=== PATIENT | female | born 1935 | race Caucasian/White ===

== ENCOUNTER 2019-11-21 07:23 | Outpatient (CLI) | payer MEDICARE, SELFPAY ==
[2019-11-21 08:40] LABS: Basophils Absolute Auto 0.1 K/mm3 (0.0-0.1); Basophils Percent Auto 0.6 % (0.2-1.2); Eosinophils Absolute Auto 0.1 K/mm3 (0-0.3); Eosinophils Percent Auto 1.4 % (0-4.4); Hemoglobin 13.1 g/dL (12.0-15.0); Immature Granulocyte Absolute 0.02 K/mm3 (0.00-0.031); Immature Granulocyte Percent A 0.2 % (0-0.5); Lymphocytes Absolute Auto 2.23 K/mm3 (0.9-3.2); Lymphocytes Percent Auto 25.8 % (18.3-44.2); Mean Corpuscular Volume 93.8 fl (80-100); Mean Platelet Volume 11.3 fl (7.4-10.4); Monocytes Absolute Auto 0.5 K/mm3 (0.1-0.6); Monocytes Percent Auto 6.1 % (2.6-8.5); Neutrophils Absolute Auto 5.7 K/mm3 (1.3-6.7); Neutrophils Percent Auto 65.9 % (45.5-73.1); Platelet Count Result 281 k/mm3 (150-375); Red Blood Count 4.37 M/mm3 (4.2-5.4); Red Cell Distribution Width 13.2 % (11.5-14.5); White Blood Count 8.7 K/mm3 (4.5-10.0)
[2019-11-21 09:36] LABS: Free T4 Free Thyroxine 1.05 ng/mL (0.78-2.19); Vitamin D 25 Hydroxy 75.8 ng/mL
[2019-11-21 09:41] LABS: Creatinine Urine 164.3 mg/dL
[2019-11-21 09:46] LABS: MALB Creatinine Ratio 42.9 mg/g (0-30); Microalbumin Urine Random 70.5 mg/L (0-16.7)
[2019-11-21 10:03] LABS: Alanine Aminotransferase 21 U/L (4-35); Alkaline Phosphatase 121 U/L (38-126); Aspartate Amino Transferase 27 U/L (14-36); Bilirubin,Total 1.3 mg/dL (0.2-1.3); Blood Urea Nitrogen 18 mg/dL (7-17); Calcium 9.6 mg/dL (8.4-10.2); Carbon Dioxide 29 mmol/L (22-30); Cholesterol 131 mg/dL (0-200); Estimated Glomerular Filt Rate 53; Glucose 110 mg/dL (65-105); HDL Direct 32 mg/dL; Triglycerides 108 mg/dL (<150)
[2019-11-21 10:10] LABS: Hemoglobin A1C 5.7 % (<5.7)
[2019-11-21 10:12] LABS: LDL Cholesterol Direct 75 mg/dL
[2019-11-21 10:34] LABS: Total Triiodothyronine (T3) 1.26 NG/ML (0.97-1.69)
[2019-11-21 12:23] LABS: Albumin Level 4.4 g/dL (3.5-5.1); Anion Gap 7 mmol/L (8-16); Chloride 107 mmol/L (98-107); Potassium 4.2 mmol/L (3.4-5.0); Sodium 143 mmol/L (137-145)
== END 2019-11-21 07:24 | disposition home or self-care (01) ==
PROVIDERS: PCP Family Medicine; Visit Provider Nurse Practitioner
DX: E55.9 Vitamin D deficiency, unspecified (principal); I48.19 Other persistent atrial fibrillation; I50.32 Chronic diastolic (congestive) heart failure; E78.2 Mixed hyperlipidemia; R73.03 Prediabetes; I10 Essential (primary) hypertension
CPT/HCPCS: 36415; 80053; 80061; 82043; 82306; 82607; 83036; 84439; 84443; 84480; 85025

== ENCOUNTER 2020-04-14 06:59 | Outpatient (CLI) | payer MEDICARE, SELFPAY ==
[2020-04-14 08:16] LABS: Uric Acid 7.1 mg/dL (2.5-7.5)
== END 2020-04-14 07:00 | disposition home or self-care (01) ==
PROVIDERS: PCP Family Medicine
DX: M10.9 Gout, unspecified (principal)
CPT/HCPCS: 36415; 84550

== ENCOUNTER 2020-04-15 08:14 | Outpatient (CLI) | payer MEDICARE, SELFPAY ==
--- NOTE | ~2020-04-15 | XR_ITS ---
EXAMINATION: XR foot RT min 3V EXAM DATE: 04/15/2020 08:42 INDICATION: Pain and swelling in right foot for 4 days, no known recent injury. TECHNIQUE: Right foot dorsoplantar, lateral and oblique projections obtained and reviewed. There is no prior study for comparison. FINDINGS: Right metatarsal bones unremarkable. There is moderate polyarticular midfoot primary osteo arthritis. Mild hallux valgus and 1st MTP primary osteoarthritis. There are no bony erosions identif ied. There is nonspecific swelling over the dorsum of the foot. There are no acute fractures identifi ed. IMPRESSION: 1. No acute right foot osseous findings. 2. Moderate mid foot osteoarthritis. 3. Nonspecific soft tissue swelling. Reviewed, dictated and finalized at location B. L [employer]
== END 2020-04-15 08:15 | disposition home or self-care (01) ==
PROVIDERS: PCP Family Medicine
DX: M19.071 Primary osteoarthritis, right ankle and foot (principal); M20.21 Hallux rigidus, right foot; M79.89 Other specified soft tissue disorders
CPT/HCPCS: 73630

== ENCOUNTER 2020-12-17 07:59 | Outpatient (CLI) | payer MEDICARE, SELFPAY ==
[2020-12-17 08:37] LABS: Basophils Percent Auto 0.4 % (0.2-1.2); Eosinophils Absolute Auto 0.1 K/mm3 (0-0.3); Eosinophils Percent Auto 1.5 % (0-4.4); Hematocrit 38.7 % (37.0-47.0); Hemoglobin 12.3 g/dL (12.0-15.0); Immature Granulocyte Absolute 0.03 K/mm3 (0.00-0.031); Immature Granulocyte Percent A 0.3 % (0-0.5); Lymphocytes Absolute Auto 2.14 K/mm3 (0.9-3.2); Lymphocytes Percent Auto 23.6 % (18.3-44.2); Mean Corpuscular HGB Conc 31.8 g/dl (32-36); Mean Corpuscular Hemoglobin 29.5 pg (26-34); Mean Corpuscular Volume 92.8 fl (80-100); Mean Platelet Volume 10.8 fl (7.4-10.4); Monocytes Absolute Auto 0.6 K/mm3 (0.1-0.6); Monocytes Percent Auto 6.9 % (2.6-8.5); Neutrophils Absolute Auto 6.1 K/mm3 (1.3-6.7); Neutrophils Percent Auto 67.3 % (45.5-73.1); Platelet Count Result 301 k/mm3 (150-375); Red Blood Count 4.17 M/mm3 (4.2-5.4); Red Cell Distribution Width 13.8 % (11.5-14.5); White Blood Count 9.1 K/mm3 (4.5-10.0)
[2020-12-17 08:51] LABS: Alanine Aminotransferase 17 U/L (4-35); Albumin Level 4.3 g/dL (3.5-5.1); Alkaline Phosphatase 110 U/L (38-126); Anion Gap 9 mmol/L (8-16); Aspartate Amino Transferase 24 U/L (14-36); Bilirubin,Total 1.8 mg/dL (0.2-1.3); Blood Urea Nitrogen 19 mg/dL (7-17); Calcium 9.6 mg/dL (8.4-10.2); Carbon Dioxide 28 mmol/L (22-30); Chloride 105 mmol/L (98-107); Cholesterol 143 mg/dL (0-200); Estimated Glomerular Filt Rate 52; Glucose 113 mg/dL (65-110); HDL Direct 33 mg/dL; Potassium 4.1 mmol/L (3.4-5.0); Sodium 142 mmol/L (137-145); Triglycerides 88 mg/dL (<150)
[2020-12-17 09:02] LABS: LDL Cholesterol Direct 77 mg/dL
[2020-12-17 09:04] LABS: Hemoglobin A1C 5.8 % (<5.7)
[2020-12-17 09:06] LABS: Free T4 Free Thyroxine 1.31 ng/mL (0.78-2.19)
[2020-12-17 09:13] LABS: Creatinine Urine 33.8 mg/dL
[2020-12-17 09:17] LABS: MALB Creatinine Ratio 23.7 mg/g (0-30)
[2020-12-17 12:19] LABS: Total Triiodothyronine (T3) 1.48 NG/ML (0.97-1.69)
== END 2020-12-17 08:00 | disposition home or self-care (01) ==
LOC: ANHLAB 08:08
PROVIDERS: PCP Family Medicine; Visit Provider Family Medicine
DX: I11.0 Hypertensive heart disease with heart failure (principal); I48.19 Other persistent atrial fibrillation; I50.32 Chronic diastolic (congestive) heart failure; E78.2 Mixed hyperlipidemia; E55.9 Vitamin D deficiency, unspecified; R73.09 Other abnormal glucose
CPT/HCPCS: 36415; 80053; 80061; 82043; 82306; 83036; 84439; 84443; 84480; 85025

== ENCOUNTER 2021-01-14 08:02 | Outpatient (CLI) | payer MEDICARE, SELFPAY | END 2021-01-14 08:03 | disposition home or self-care (01) | LOC: ANHLAB 08:06 | PROVIDERS: PCP Family Medicine; Visit Provider Family Medicine | DX: E55.9 Vitamin D deficiency, unspecified (principal) | CPT/HCPCS: 36415; 82306 ==

== ENCOUNTER 2021-10-14 13:40 | Outpatient (CLI) | payer MEDICARE, SELFPAY ==
--- NOTE | ~2021-10-14 | CT_ITS ---
EXAMINATION: CT abdomen pelvis w con DATE: 10/14/2021 14:11 INDICATION: Lower abdominal pain/pressure TECHNIQUE: Computed tomography (CT) of the abdomen and pelvis was performed with 100 mL Omnipaque-350 intravenous contrast. Automated exposure control and iterative reconstruction technique were employe d. The dose-length product was 562.30 mGy-cm. COMPARISON: None FINDINGS: Bilateral lower lung zones are clear. Heart size is normal. No pericardial or pleural effusion. Small fat-containing right Bochdalek hernia. Dilation of the main common bile duct which measures up to 12 mm which is within normal limits post cholecystectomy with surgical clips the gallbladder fossa. No intrahepatic biliary ductal dilation. Liver, pancreas, bilateral adrenal glands and right kidney are normal. Small region of cortical scarring at the left kidney. Multiple splenic calcific lesions consi stent with old granulomatous disease. There is prominent colonic diverticulosis with a sigmoid predom inance. There is no adjacent inflammatory change to suggest diverticulitis. The appendix is not visu alized. No pericecal inflammatory change to suggest acute appendicitis. No bowel obstruction. Decompr essed bladder is normal. The uterus is not identified and has likely been surgically resected. No nany e intraperitoneal gas or fluid. No pathologically enlarged abdominal or pelvic lymphadenopathy. Mild lumbar levoscoliosis with severe spondylosis. Diffuse spotty osteopenia. IMPRESSION: 1. No acute intra-abdominal/pelvic process. 2. Diverticulosis. Reviewed, dictated and finalized at location A.
[2021-10-14 14:08] LABS: Estimated Glomerular Filt Rate 59
== END 2021-10-14 13:41 | disposition home or self-care (01) ==
PROVIDERS: PCP Family Medicine; Visit Provider Nurse Practitioner Adult Health
DX: R10.9 Unspecified abdominal pain (principal); Z98.890 Other specified postprocedural states; K57.30 Diverticulosis of large intestine without perforation or abscess without bleeding
CPT/HCPCS: 74177; Q9967